=== PATIENT | female | born 1975 | race African-American/Black ===

== ENCOUNTER 2022-03-29 07:06 | Emergency (ER) | payer OTHER, SELFPAY ==
[2022-03-29 07:18] VITALS: BP 128/74; PULSE 61; RESP 18; TEMP 36.7; O2SAT 99; BMI 40.9
--- OUTSIDE RECORDS SUMMARY | 2022-03-29 08:04 | XMS_ITS | Continuity of Care Document ---
:1975 Author Organization [facility] Address [address] [place] [address]- Care Team Providers Name Role Phone Martin DOSS, Topher Moore Primary Care Phys[id number] Date(s): 02/09/21 - 03/11/21 [facility] [address] [place] [address]- Allergies, Adverse Reactions, Alerts No Known Medication Allergies Medications Basaglar KwikPen 100 units/mL subcutaneous solution = 10 units, Subcutaneous Injection, Daily at bedtime, # 10 mL, 0 Refills, Maintenance, 02/23/21 8:14:00 EST, Solution, Partial fill upon patient request if the prescription is for a schedule II opioid drug. Start Date: 02/23/21 Status: OrderedCetirizine 0 Refills, Maintenance, 03/10/20 12:34:00 EST, Partial fill upon patient request if the prescriptionis for a schedule II opioid drug. Start Date: 03/10/20 Status: Orderedchlorthalidone 25 mg oral tablet 25 mg, 1, tablet, By Mouth, Daily, # 30 tablet, Refills 2, Tot. Refills 2, Maintenance, 06/14/20 15:45:00 EST, Route to Pharmacy Electronically, [facility]/pharmacy #[id number], Partial fill upon patient request ifthe prescription is for a schedule II opioid drug... Start Date: 06/14/20 Status: OrderedCompression Stockings See Instructions, # 2 each, Refills 2, Tot. Refills 2, Maintenance, surgical, knee length 20-30 mm Hg DX: I83.899, 09/28/20 9:45:00 EDT, Supply Start Date: 09/28/20 Status: Orderedferrous sulfate 325 mg oral enteric coated tablet 325 mg, 1, tablet, By Mouth, Daily, # 30 tablet, Refills 0, Maintenance, 03/10/20 12:33:00 EST, Partial fill upon patient request if the prescription is for a schedule II opioid drug. Start Date: 03/10/20 Status: OrderedLyrica 150 mg oral capsule 1 capsule = 150 mg, By Mouth, 2 times a day, # 60 capsule, 0 Refills, Maintenance, 02/23/21 8:13:00 EST, Capsule, Partial fill upon patient request if the prescription is for a schedule II opioid drug. Start Date: 02/23/21 Status: OrderedNaprosyn 500 mg oral tablet 1 tablet = 500 mg, By Mouth, 2 times a day, PRN pain, with food, # 30 tablet, 0 Refills, Maintenance, 06/13/14 16:25:27, Tablet, 1 tablet By Mouth 2 times a day,x15 days,PRN:pain,Instr:with food Start Date: 06/13/14 Stop Date: 06/28/14 Status: Orderednaproxen 500 mg oral tablet 1 tablet = 500 mg, By Mouth, 2 times a day, PRN Pain , Moderate, with food, # 20 tablet, 0 Refills, Maintenance, 06/14/18 11:50:42 EST, Tablet Start Date: 06/14/18 Stop Date: 06/24/18 Status: OrderedTessalon Perles 100 mg oral capsule 1 capsule = 100 mg, By Mouth, 3 times a day, for 7 days, do not crush or chew for cough, # 21 capsule, 0 Refills, Acute 03/12/21 17:54:00 EST, 03/05/21 17:54:00 EST, Capsule, [facility]/pharmacy #[id number], Partial fill upon patient request if the prescription i... Start Date: 03/05/21 Stop Date: 03/12/21 Status: OrderedtiZANidine 2 mg oral capsule 2 capsule = 4 mg, By Mouth, Every 8 hours, 0 Refills, Maintenance, 09/22/20 15:29:00 EDT, Partial fill upon patient request if the prescription is for a schedule II opioid drug. Start Date: 09/22/20 Status: Ordered Problem List Condition Effective Dates Status Health Status Informant Acute vaginitis(Confirmed) Active Severe obesity(Confirmed) Active Social History Social History Type Response Smoking Status Current every day smoker entered on: 07/04/14 Sex
--- OUTSIDE RECORDS SUMMARY | 2022-03-29 08:05 | XMS_ITS | Continuity of Care Document ---
:1975 Author Organization [facility] Address [address] [place] [address]- Care Team Providers Name Role Phone Martin DOSS, Topher Moore Primary Care Physician Encounter [facility] Date(s): 08/27/21 - 09/03/21 [facility] [address] [place], [place] [address] Attending Physician: Reji Levi MD Admitting Physician: Reji Levi MD Referring Physician: Topher Salazar NP Allergies, Adverse Reactions, Alerts No Known Medication Allergies Medications Ativan 0.5 mg oral tablet See Instructions, TAKE 1 TABLET AT BEDTIME AND 1 TABLET 1 HOUR PRIOR TO PROCEDURE, # 2 tablet, 0 Refills, Maintenance, 08/04/21 11:21:00 EDT, Partial fill upon patient request if the prescription is for a schedule II opioid drug. Start Date: 08/04/21 Status: OrderedBasaglar KwikPen 100 units/mL subcutaneous solution = 10 [...] 06/14/20 15:45:00 EST, Route to Pharmacy Electronically, [facility]/pharmacy #[id number], Partial fill upon patient request ifthe prescription [...] II opioid drug. Start Date: 03/10/20 Status: Orderedgabapentin 300 mg oral capsule TAKE 1 CAPSULE BY MOUTH 3 TIMES DAILY FOR PAIN Start Date: 08/27/21 Status: Orderedketotifen 0.025% ophthalmic solution 1 drops, Eyes, Both, Every 12 hours, for 30 days, # 7.5 mL, 0 Refills, Acute 09/05/21 11:25:00 EDT, 08/06/21 11:25:00 EDT, Solution, [facility]/pharmacy #[id number], Partial fill upon patient request if the prescription is for a schedule II opioid drug., 1 drops E... Start Date: 08/06/21 Stop Date: 09/05/21 Status: Orderedlidocaine-prilocaine 2.5%-2.5% topical cream See Instructions, APPLY TO AFFECTED LEG FROM THIGH TO ANKLE 1 HOUR PRIOR TO PROCEDURE AND COVER WITHPLASTIC WRAP, # 30 Gm, 0 Refills, Maintenance, 08/04/21 11:21:00 EDT, Partial fill upon patient request if the prescription is for a schedule II opioi... Start Date: 08/04/21 Status: OrderedLyrica 150 mg oral capsule 1 [...] Start Date: 06/14/18 Stop Date: 06/24/18 Status: Orderedomeprazole 20 mg oral delayed release tablet 1 tablet = 20 mg, By Mouth, 2 times a day, # 28 tablet, 0 Refills, Maintenance, 04/21/21 17:05:00 EST, EC Tablet, [facility]/pharmacy #[id number], Partial fill upon patient request if the prescription is for a schedule II opioid drug., 163, cm, 04/21/21 16:03:00 E... Start Date: 04/21/21 Stop Date: 05/05/21 Status: OrderedtiZANidine 2 mg oral capsule 2 capsule = 4 mg, By Mouth, Every 8 hours, 0 Refills, Maintenance, 09/22/20 15:29:00 EDT, Partial fill upon patient request if the prescription is for a schedule II opioid drug. Start Date: 09/22/20 Status: Ordered Problem List Condition Effective Dates Status Health Status Informant Acute vaginitis(Confirmed) Active Severe obesity(Confirmed) Active Vital Signs Most recent to oldest [Reference Range]: 1 Height 163 cm (08/27/21 12:59 PM) Weight 114.5 kg (08/27/21 12:59 PM) Pulse Rate [55-90 bpm] 64 bpm (08/27/21 12:59 PM) Body Mass Index [18.5-24.99] 43.1 *>HHI* (08/27/21 12:59 PM) Blood Pressure [90-138/55-84 mm Hg] 150/72 mm Hg *H* (08/27/21 12:59 PM) Blood pressure sites Arm, right (08/27/21 12:59 PM) Weight Obtained Via Patient/family stated (08/27/21 12:59 PM) Social History Social History Type Response Smoking Status Current every day smoker entered on: 07/04/14 Sex
--- OUTSIDE RECORDS SUMMARY | 2022-03-29 08:05 | XMS_ITS | Continuity of Care Document ---
:1975 Author Organization [facility] Address [address] [place] [address]- Care Team Providers Name Role Phone Martin DOSS, Topher Moore Primary Care Physician [phone] [id number] Date(s): 01/17/22 - 02/16/22 [facility] [address] [place], [place] [address] Allergies, Adverse Reactions, Alerts No Known Medication Allergies Medications atorvastatin 40 mg oral tablet 0 Refills, Maintenance, 01/21/22 10:26:00 EDT, Partial fill upon patient request if the prescriptionis for a schedule II opioid drug. Start Date: 01/21/22 Status: OrderedCetirizine 0 Refills, Maintenance, 03/10/20 12:34:00 EST, Partial fill upon patient request if the prescriptionis for a schedule II opioid drug. Start Date: 03/10/20 Status: OrderedCompression Stockings See Instructions, # 2 each, Refills 2, Tot. Refills 2, Maintenance, surgical, knee length 20-30 mm Hg DX: I83.899, 09/23/21 10:15:00 EDT, Supply Start Date: 09/23/21 Status: Orderedferrous sulfate 325 mg oral enteric coated tablet 325 mg, 1, tablet, By Mouth, Daily, # 30 tablet, Refills 0, Maintenance, 03/10/20 12:33:00 EST, Partial fill upon patient request if the prescription is for a schedule II opioid drug. Start Date: 03/10/20 Status: Orderedfurosemide 40 mg oral tablet Refills 0, Maintenance, 01/21/22 10:26:00 EDT, Partial fill upon patient request if the prescriptionis for a schedule II opioid drug. Start Date: 01/21/22 Status: Orderedgabapentin 300 mg oral capsule TAKE 1 CAPSULE BY MOUTH 3 TIMES DAILY FOR PAIN Start Date: 08/27/21 Status: Orderedpotassium chloride 10 mEq oral capsule, extended release 0 Refills, Maintenance, 01/21/22 10:33:00 EDT, Partial fill upon patient request if the prescriptionis for a schedule II opioid drug. Start Date: 01/21/22 Status: OrderedtiZANidine 2 mg oral capsule 2 capsule = 4 mg, By Mouth, Every 8 hours, 0 Refills, Maintenance, 09/22/20 15:29:00 EDT, Partial fill upon patient request if the prescription is for a schedule II opioid drug. Start Date: 09/22/20 Status: Ordered Problem List Condition Confirmation Course Effective Dates Status Health Stat us Informant Acute vaginitis Confirmed Active Severe obesity Confirmed Active Social History Social History Type Response Smoking Status Current every day smoker entered on: 07/04/14 Sex Patient Care team information Care Team PersonnelName: Martin DOSS, Topher Moore Position: Reference Physician Member Role: PCP Address: Address: [address] [place] [address] [place] Care Team Related PersonsName: MARCE BAZAN Address: home [address] [place] [address] Name: HERRERA PYLE Address: home [facility] [address] [place] [address]
--- OUTSIDE RECORDS SUMMARY | 2022-03-29 08:05 | XMS_ITS | Continuity of Care Document ---
:1975 Author Organization [facility] Address [address] [place] [address]- Care Team Providers Name Role Phone Martin DOSS, Topher Moore Primary Care Physician [phone] [id number] Date(s): 04/28/21 - 05/28/21 [facility] [address] [place] [address]- Allergies, Adverse Reactions, Alerts No Known Medication [...] 06/14/20 15:45:00 EST, Route to Pharmacy Electronically, [facility]/pharmacy #[id number], Partial fill upon patient request ifthe [...] Refills, Maintenance, 04/21/21 17:05:00 EST, EC Tablet, [facility]/pharmacy #[id number], Partial fill upon patient request if [...]
--- OUTSIDE RECORDS SUMMARY | 2022-03-29 08:05 | XMS_ITS | Continuity of Care Document ---
:1975 Author Organization [facility] Address [address] [place] [address]- Care Team Providers Name Role Phone Martin DOSS, Topher Moore Primary Care Physician [phone] Encounter [facility] Date(s): 11/24/20 - 12/24/20 [facility] [address] [place], [place] [address] Attending Physician: Romina Oconnor Admitting Physician: Romina Oconnor Referring Physician: AdmtrRomina Allergies, Adverse Reactions, Alerts No Known Medication Allergies Medications Cetirizine 0 Refills, Maintenance, 03/10/20 12:34:00 EST, Partial fill upon patient request if the prescriptionis for a schedule II opioid drug. Start Date: 03/10/20 Status: Orderedchlorthalidone 25 mg oral tablet 25 mg, 1, tablet, By Mouth, Daily, # 30 tablet, Refills 2, Tot. Refills 2, Maintenance, 06/14/20 15:45:00 EST, Route to Pharmacy Electronically, [facility]/pharmacy #[id number], Partial fill upon patient request [...] 03/10/20 Status: Orderedgabapentin 300 mg oral capsule 300 mg, 1, capsule, By Mouth, 3 times a day, # 90 capsule, Refills 0, Maintenance, 09/22/20 15:24:00EDT, Partial fill upon patient request if the prescription is for a schedule II opioid drug. Start Date: 09/22/20 Status: OrderedNaprosyn 500 mg oral tablet 1 [...] Start Date: 06/14/18 Stop Date: 06/24/18 Status: OrderedtiZANidine 2 mg oral capsule 2 capsule = 4 mg, By Mouth, Every 8 hours, 0 Refills, Maintenance, 09/22/20 15:29:00 EDT, Partial fill upon patient request if the prescription is for a schedule II opioid drug. Start Date: 09/22/20 Status: Ordered Problem List Condition Effective Dates Status Health Status Informant Acute vaginitis(Confirmed) Active Social History Social History Type Response Smoking Status Current every day smoker entered on: 07/04/14 Sex
--- OUTSIDE RECORDS SUMMARY | 2022-03-29 08:05 | XMS_ITS | Continuity of Care Document ---
:1975 Author Organization [facility] Address [address] [place] [address]- Care Team Providers Name Role Phone Martin DOSS, Topher Moore Primary Care Phys[id number] Date(s[facility] - 02/12/22 [facility] [address] [place], [place] [address] Attending Physician: Reji Levi MD Admitting [...] 40 mg oral tablet Refills 0, Maintenance, 10/14/22 10:26:00 EDT, Partial fill upon patient request [...] on: 07/04/14 Sex Patient Care team information PersonnelName: Topher Salazar NP Address: Address: [address] [place] [address] [address]
--- OUTSIDE RECORDS SUMMARY | 2022-03-29 08:05 | XMS_ITS | Continuity of Care Document ---
:1975 Author Organization [facility] Address [address] [place] [address]- Care Team Providers Name Role Phone Martin DOSS, Topher Moore Primary Care Physician Encounter [facility] Date(s): 08/06/21 - 08/13/21 [facility] [address] [place], [place] [address] Attending Physician: Kishan Petty DO Referring Physician: Topher Salazar NP Allergies, Adverse [...] 06/14/20 15:45:00 EST, Route to Pharmacy Electronically, [facility]/pharmacy #[id number], Partial fill upon patient request [...] II opioid drug. Start Date: 03/10/20 Status: Orderedketotifen 0.025% ophthalmic solution 1 drops, Eyes, Both, Every 12 hours, for 30 days, # 7.5 mL, 0 Refills, Acute 09/05/21 11:25:00 EDT, 08/06/21 11:25:00 EDT, Solution, [facility]/pharmacy #[id number], Partial fill upon patient request [...] Refills, Maintenance, 04/21/21 17:05:00 EST, EC Tablet, [facility]/pharmacy #[id number], Partial fill upon patient request [...] oldest [Reference Range]: 1 Height 163 cm (08/06/21 10:37 AM) Oxygen Saturation [94-100 %] 100 % (08/06/21 10:37 AM) Pulse Rate [55-90 bpm] 63 bpm (08/06/21 10:37 AM) Blood Pressure [90-138/55-84 mm Hg] 110/63 mm Hg (08/06/21 10:37 AM) Temperature [96.8-100.4 DegF] 97.3 DegF (08/06/21 10:37 AM) Mode of Delivery (Oxygen) Room air (08/06/21 10:37 AM) Blood pressure sites Arm, left (08/06/21 10:37 AM) Temperature Route Temporal (08/06/21 10:37 AM) Social History Social History Type Response Smoking Status Current every day smoker entered on: 07/04/14 Sex
--- OUTSIDE RECORDS SUMMARY | 2022-03-29 08:05 | XMS_ITS | Continuity of Care Document ---
:1975 Author Organization [facility] Address [address] [place] [address]- Care Team Providers Name Role Phone Martin DOSS, Topher Moore Primary Care Phys[id number] Date(s): 02/26/21 - 03/28/21 [facility] [address] [place] [address]- Allergies, Adverse Reactions, Alerts No Known Medication [...] 06/14/20 15:45:00 EST, Route to Pharmacy Electronically, [facility]/pharmacy #[id number], Partial fill upon patient request [...]
--- OUTSIDE RECORDS SUMMARY | 2022-03-29 08:05 | XMS_ITS | Continuity of Care Document ---
:1975 Author Organization [facility] Address [address] [place] [address]- Care Team Providers Name Role Phone Martin DOSS, Topher Moore Primary Care Physician [id number] Date(s): 08/13/21 - 08/20/21 [facility] [address] [place], [place] [address] Attending Physician: Joao Bush MD Admitting Physician: Joao Bush MD Referring Physician: Topher Salazar NP Allergies, [...] 15:45:00 EST, Route to Pharmacy Electronically, [facility]/pharmacy #[id number], Partial fill upon patient request [...] 11:25:00 EDT, 08/06/21 11:25:00 EDT, Solution, [facility]/pharmacy #[id number], Partial fill upon patient request [...] Maintenance, 04/21/21 17:05:00 EST, EC Tablet, [facility]/pharmacy #[id number], Partial fill upon patient request [...]
--- OUTSIDE RECORDS SUMMARY | 2022-03-29 08:05 | XMS_ITS | Continuity of Care Document ---
:1975 Author Organization [facility] Address [address] [place] [address]- Care Team Providers Name Role Phone Ann Noel Primary Care Physician Encounter [facility] Date(s): 11/12/19 - 12/12/19 [facility] [address] [place] [address]- [facility] Attending Physician: Romina Oconnor Admitting Physician: Romina Oconnor Referring Physician: AdmtrRomina Allergies, Adverse Reactions, Alerts No Known Medication Allergies Medications Diflucan 150 mg oral tablet See Instructions, 1 tablet By Mouth Once for signs of yeast infection, then repeat in 5 days if symptoms continue, # 2 tablet, 0 Refills, Soft Stop, 07/17/19 13:41:00 EDT, Tablet, [facility] #[id number], 163, cm, 07/15/19 10:14:00 EDT, Height, 10... Start Date: 07/17/19 Status: OrderedHydrochlorothiazide By Mouth, Daily, 0 Refills, Maintenance, 07/05/14 13:56:54 Start Date: 07/05/14 Status: OrderedNaprosyn 500 mg oral tablet 1 [...] Start Date: 06/14/18 Stop Date: 06/24/18 Status: OrderedOmeprazole By Mouth, Daily, 0 Refills, Maintenance, 07/05/14 13:56:10 Start Date: 07/05/14 Status: Ordered Social History Social History Type Response Smoking Status Current every day smoker entered on: 07/04/14 Sex
--- OUTSIDE RECORDS SUMMARY | 2022-03-29 08:05 | XMS_ITS | Continuity of Care Document ---
:1975 Author Organization [facility] Address [address] [place] [address]- Care Team Providers Name Role Phone Martin DOSS, Topher Moore Primary Care Physician [phone] Encounter [facility] Date(s): 08/06/21 - 09/05/21 [facility] [address] [place], [place] [address] Attending Physician: Romina Oconnor Admitting Physician: Romina Oconnor Referring Physician: trRomina Allergies, Adverse Reactions, Alerts No Known Medication [...] 06/14/20 15:45:00 EST, Route to Pharmacy Electronically, [facility]/pharmacy #[id number], Partial fill upon patient request ifthe prescription [...] DAILY FOR PAIN Start Date: 08/27/21 Status: Orderedlidocaine-prilocaine 2.5%-2.5% topical cream See Instructions, [...] Refills, Maintenance, 04/21/21 17:05:00 EST, EC Tablet, [facility]/pharmacy #[id number], Partial fill upon patient request if [...]
--- OUTSIDE RECORDS SUMMARY | 2022-03-29 08:05 | XMS_ITS | Continuity of Care Document ---
:1975 Author Organization [facility] Address [address] [place] [address]- Care Team Providers Name Role Phone Martin DOSS, Topher oMore Primary Care Physician [id number] Date(s): 02/23/21 - 03/02/21 [facility] [address] [place] [address]- Attending Physician: Javan Hernandez MD Admitting Physician: Javan Hernandez MD Referring Physician: Topher Salazar NP Allergies, [...] 06/14/20 15:45:00 EST, Route to Pharmacy Electronically, [facility]/pharmacy #[id number], Partial fill upon patient request [...]
--- OUTSIDE RECORDS SUMMARY | 2022-03-29 08:05 | XMS_ITS | Continuity of Care Document ---
:1975 Author Organization [facility] Address [address] [place] [address]- Care Team Providers Name Role Phone Ann Noel Primary Care Physician Encounter [facility] Date(s): 04/18/20 - 05/18/20 [facility] [address] [place] [address]- Attending Physician: Romina Oconnor Admitting Physician: Romina Oconnor Referring Physician: Romina Oconnor Allergies, Adverse Reactions, Alerts No Known Medication Allergies Medications Cetirizine 0 Refills, Maintenance, 03/10/20 12:34:00 EST, Partial fill upon patient request if the prescriptionis for a schedule II opioid drug. Start Date: 03/10/20 Status: Orderedferrous sulfate 325 mg oral enteric coated tablet 325 mg, 1, tablet, By Mouth, Daily, # 30 tablet, Refills 0, Maintenance, 03/10/20 12:33:00 EST, Partial fill upon patient request if the prescription is for a schedule II opioid drug. Start Date: 03/10/20 Status: OrderedHydrochlorothiazide By Mouth, Daily, 0 Refills, [...] 07/05/14 13:56:10 Start Date: 07/05/14 Status: Ordered Problem List Condition Effective Dates Status Health Status Informant Acute vaginitis(Confirmed) Active Social History Social History Type Response Smoking Status Current every day smoker entered on: 07/04/14 Sex
--- OUTSIDE RECORDS SUMMARY | 2022-03-29 08:05 | XMS_ITS | Continuity of Care Document ---
:1975 Author Organization [facility] Address [address] [place] [address]- Care Team Providers Name Role Phone Ann Noel Primary Care Physician Encounter [facility] Date(s): 07/15/19 - 07/22/19 [facility] [address] [place] [address]- [facility] Encounter Diagnosis Vaginal discharge (Discharge Diagnosis) - 07/15/19 Attending Physician: Stella SONI, Armani Benton Referring Physician: Ann Noel Medications Diflucan 150 mg oral tablet See Instructions, 1 tablet By Mouth Once for signs of yeast infection, then repeat in 5 days if symptoms continue, # 2 tablet, 0 Refills, Soft Stop, 07/17/19 13:41:00 EDT, [id number], 163, cm, 07/15/19 10:14:00 EDT, Height, 10... Start Date: 07/17/19 Status: OrderedHydrochlorothiazide By Mouth, Daily, 0 Refills, Maintenance, 07/05/14 13:56:54 Start Date: 07/05/14 Status: OrderedmetroNIDAZOLE 500 mg oral tablet 1 tablet = 500 mg, By Mouth, Every 12 hours, for 7 days, do not drink alcohol may take with food to minimize abdominal discomfort, # 14 tablet, 0 Refills, Acute 07/24/19 13:41:00 EDT, 07/17/19 13:41:00EDT, Tablet, [id number] #[id number], 163, c... Start Date: 07/17/19 Stop Date: 07/24/19 Status: OrderedNaprosyn 500 mg oral tablet 1 [...] Start Date: 07/05/14 Status: Ordered Problem List Diagnosis Diagnosis Type Effective Dates Health Status Clinical In formant Service Vaginal Discharge 07/15/19 discharge Diagnosis Vital Signs Most recent to oldest [Reference Range]: 1 Height 163 cm (07/15/19 10:14 AM) Weight 108.6 kg (07/15/19 10:14 AM) Oxygen Saturation [94-100 %] 100 % (07/15/19 10:14 AM) Pulse Rate [55-90 bpm] 61 bpm (07/15/19 10:14 AM) Body Mass Index [18.5-24.99] 40.87 *>HHI* (07/15/19 10:14 AM) Blood Pressure [90-138/55-84 mm Hg] 101/87 mm Hg (07/15/19 10:14 AM) Respiratory Rate [16-30 br/min] 18 br/min (07/15/19 10:14 AM) Temperature [96.8-100.4 DegF] 97.7 DegF (07/15/19 10:14 AM) Mode of Delivery (Oxygen) Room air (07/15/19 10:14 AM) Blood pressure sites Arm, right (07/15/19 10:14 AM) Temperature Route Oral (07/15/19 10:14 AM) Dry Weight 108.6 kg (07/15/19 10:14 AM) Weight Obtained Via Standing scale (07/15/19 10:14 AM) Dry Weight Obtained Via Standing scale (07/15/19 10:14 AM) Social History Social History Type Response Smoking Status Current every day smoker entered on: 07/04/14 Sex
--- OUTSIDE RECORDS SUMMARY | 2022-03-29 08:05 | XMS_ITS | Continuity of Care Document ---
:1975 Author Organization [facility] Address [address] [place] [address]- Care Team Providers Name Role Phone Ann Noel Primary Care Phys[id number] - 11/19/19 [facility] [address] [place] [address]- [facility] Attending Physician: Stella SONI, Armani Benton Referring Physician: Ann Noel Allergies, Adverse Reactions, Alerts No Known Medication Allergies Medications Diflucan 150 mg oral tablet See Instructions, 1 tablet By Mouth Once for signs of yeast infection, then repeat in 5 days if symptoms continue, # 2 tablet, 0 Refills, Soft Stop, 07/17/19 13:41:00 EDT, Tablet, [facility] #[id number], 163, cm, 07/15/19 10:14:00 EDT, Height, 10... Start Date: 07/17/19 Status: OrderedFlagyl 500 mg oral tablet 1 tablet = 500 mg, By Mouth, Every 12 hours, for 7 days, # 14 tablet, 0 Refills, Acute 11/26/19 14:01:00 EDT, 11/19/19 14:01:00 EDT, Tablet, [facility] #[id number], 163, cm, 11/12/19 15:55:00 EDT,Height, 108.6, kg, 07/15/19 10:14:00 EDT, Dry Weight Start Date: 11/19/19 Stop Date: 11/26/19 Status: OrderedHydrochlorothiazide By Mouth, Daily, 0 Refills, [...] 07/05/14 13:56:10 Start Date: 07/05/14 Status: Ordered Vital Signs Most recent to oldest [Reference Range]: 1 Height 163 cm (11/12/19 3:55 PM) Oxygen Saturation [94-100 %] 100 % (11/12/19 3:55 PM) Pulse Rate [55-90 bpm] 69 bpm (11/12/19 3:55 PM) Blood Pressure [90-138/55-84 mm Hg] 117/77 mm Hg (11/12/19 3:55 PM) Respiratory Rate [16-30 br/min] 23 br/min (11/12/19 3:55 PM) Temperature [96.8-100.4 DegF] 99.4 DegF (11/12/19 3:55 PM) Mode of Delivery (Oxygen) Room air (11/12/19 3:55 PM) Blood pressure sites Arm, left (11/12/19 3:55 PM) Temperature Route Temporal (11/12/19 3:55 PM) Social History Social History Type Response Smoking Status Current every day smoker entered on: 07/04/14 Sex
--- OUTSIDE RECORDS SUMMARY | 2022-03-29 08:05 | XMS_ITS | Continuity of Care Document ---
:1975 Author Organization [facility] Address [address] [place] [address]- Care Team Providers Name Role Phone Martin DOSS, Topher Moore Primary Care Physician [phone] [id number] Date(s): 03/05/21 - 04/04/21 [facility] [address] [place] [address]- Attending Physician: Romina Oconnor Admitting Physician: Romina [...] 06/14/20 15:45:00 EST, Route to Pharmacy Electronically, [facility]/pharmacy #[id number], Partial fill upon patient request ifthe prescription [...]
--- OUTSIDE RECORDS SUMMARY | 2022-03-29 08:05 | XMS_ITS | Continuity of Care Document ---
:1975 Author Organization [facility] Address [address] [place] [address]- Care Team Providers Name Role Phone Martin DOSS, Topher Moore Primary Care Physician [phone] [facility] Date(s): 04/21/21 - 05/21/21 [facility] [address], [place] [address] Attending Physician: Romina Oconnor Admitting Physician: Romina [...] EST, Route to Pharmacy Electronically, [facility]/pharmacy #[id number], Partial fill upon patient request ifthe [...] 04/21/21 17:05:00 EST, EC Tablet, [facility]/pharmacy #[id number], Partial fill upon patient request if [...]
--- OUTSIDE RECORDS SUMMARY | 2022-03-29 08:05 | XMS_ITS | Continuity of Care Document ---
:1975 Author Organization [facility] Address [address] [place] [address]- Care Team Providers Name Role Phone Martin DOSS, Topher Moore Primary Care Physician [place] [facility] [place] 10/29/20 - 11/28/20 [facility] [address] [place] [place], [place] [address] Attending Physician: Romina Oconnor Admitting Physician: [...] 06/14/20 15:45:00 EST, Route to Pharmacy Electronically, [facility]/pharmacy #[id number], Partial fill upon patient request ifthe [...]
--- OUTSIDE RECORDS SUMMARY | 2022-03-29 08:05 | XMS_ITS | Continuity of Care Document ---
:1975 Author Organization [facility] Address [address] [place] [address]- Care Team Providers Name Role Phone Ann Noel Primary Care Physician [id number] Date(s): 04/18/20 - 04/25/20 [facility] [address] [place] [address]- Encounter Diagnosis Acute vaginitis (Discharge Diagnosis) - 04/18/20 Attending Physician: Esther Lau MD Referring Physician: Ann Noel Allergies, Adverse Reactions, Alerts No Known Medication Allergies Medications Cetirizine 0 Refills, Maintenance, 03/10/20 12:34:00 EST, Partial fill upon patient request if the prescriptionis for a schedule II opioid drug. Start Date: 03/10/20 Status: OrderedDiflucan 150 mg oral tablet 1 tablet = 150 mg, By Mouth, Once, # 2 tablet, 0 Refills, Soft Stop, 01/14/20 15:24:00 EDT, Tablet, [facility] #[id number], 163, cm, 01/12/20 8:58:00 EDT, Height, 114.9, kg, 01/12/20 9:02:00 EDT, Dry Weight Start Date: 01/14/20 Status: OrderedDiflucan 150 mg oral tablet 1 tablet = 150 mg, By Mouth, Once, # 2 tablet, 0 Refills, Soft Stop, 04/18/20 15:15:00 EST, Tablet, [facility]/pharmacy #[id number], Partial fill upon patient request if the prescription is for a schedule II opioiddrug., 163, cm, 04/18/20 14:46:00 EST, Height, 11... Start Date: 04/18/20 Status: OrderedDiflucan 150 mg oral tablet See Instructions, 1 tablet By Mouth Once for signs of yeast infection, then repeat in 5 days if symptoms continue, # 2 tablet, 0 Refills, Soft Stop, 07/17/19 13:41:00 EDT, Tablet, [facility][id number], 163, cm, 07/15/19 10:14:00 EDT, Height, 10... Start Date: 07/17/19 Status: Orderedferrous sulfate 325 mg oral enteric [...] Status Health Status Informant Acute vaginitis(Confirmed) Active Diagnosis Diagnosis Type Effective Dates Health Status Clinical In formant Service Acute vaginitis Discharge 04/18/20 Diagnosis Vital Signs Most recent to oldest [Reference Range]: 1 Height 163 cm (04/18/20 2:46 PM) Weight 110.6 kg (04/18/20 2:46 PM) Oxygen Saturation [94-100 %] 98 % (04/18/20 2:46 PM) Pulse Rate [55-90 bpm] 106 bpm *H* (04/18/20 2:46 PM) Body Mass Index [18.5-24.99] 41.63 *>HHI* (04/18/20 2:46 PM) Blood Pressure [90-138/55-84 mm Hg] 152/80 mm Hg *H* (04/18/20 2:46 PM) Respiratory Rate [16-30 br/min] 16 br/min (04/18/20 2:46 PM) Temperature [96.8-100.4 DegF] 98.0 DegF (04/18/20 2:46 PM) Mode of Delivery (Oxygen) Room air (04/18/20 2:46 PM) Blood pressure sites Arm, left (04/18/20 2:46 PM) Temperature Route Temporal (04/18/20 2:46 PM) Weight Obtained Via Standing scale (04/18/20 2:46 PM) Social History Social History Type Response Smoking Status Current every day smoker entered on: 07/04/14 Sex
--- OUTSIDE RECORDS SUMMARY | 2022-03-29 08:05 | XMS_ITS | Continuity of Care Document ---
:1975 Author Organization [facility] Address [address] [place] [address]- Care Team Providers Name Role Phone Ann Noel Primary Care Physician Encounter [facility] NBR [id number] Date(s): 05/14/20 - 05/14/[address] [address]- Encounter Diagnosis Chronic leg pain (Final) - 05/14/20 Discharge Disposition: A-D/C Home Attending Physician: Andrés Trammell MD Admitting Physician: Andrés Trammell MD Referring Physician: Not on Staff, Referring MD Allergies, Adverse Reactions, Alerts No Known Medication [...] Status Health Status Informant Acute vaginitis(Confirmed) Active Vital Signs Most recent to oldest [Reference Range]: 1 2 Height 163 cm (05/14/20 11:31 AM) Weight 109 kg (05/14/20 11:31 AM) Oxygen Saturation [94-100 %] 100 % 100 % (05/14/20 2:45 PM) (05/14/20 11:31 AM) Pulse Rate [55-90 bpm] 67 bpm 71 bpm (05/14/20 2:45 PM) (05/14/20 11:31 AM) Blood Pressure [90-138/55-84 mm Hg] 135/96 mm Hg 124/ 75 mm Hg (05/14/20 2:45 PM) (05/14/20 11:31 AM) Respiratory Rate [16-30 br/min] 16 br/min 16 br/mi n (05/14/20 2:45 PM) (05/14/20 11:31 AM) Temperature [96.8-100.4 DegF] 98.1 DegF (05/14/20 11:31 AM) Mode of Delivery (Oxygen) Room air Room air (05/14/20 2:45 PM) (05/14/20 11:31 AM) Blood pressure sites Arm, left Arm, left (05/14/20 2:45 PM) (05/14/20 11:31 AM) Temperature Route Oral (05/14/20 11:31 AM) Dry Weight 109 kg (05/14/20 11:31 AM) Weight Obtained Via Patient/family stated (05/14/20 11:31 AM) Dry Weight Obtained Via Patient/family stated (05/14/20 11:31 AM) Social History Social History Type Response Smoking Status Current every day smoker entered on: 07/04/14 Sex
--- OUTSIDE RECORDS SUMMARY | 2022-03-29 08:05 | XMS_ITS | Continuity of Care Document ---
:1975 Author Organization [facility] Address [address] [place] [address]- Care Team Providers Name Role Phone Martin DOSS, Topher Moore Primary Care Physician [facility] [id number] Date(s): 12/22/21 - 12/29/21 [facility] [address] [place], [place] [address] Attending Physician: Kishan Petty DO Referring Physician: [...] 06/14/20 15:45:00 EST, Route to Pharmacy Electronically, [facility]/pharmacy #[id number], Partial fill upon patient [...] Refills, Maintenance, 04/21/21 17:05:00 EST, EC Tablet, [facility]/pharmacy #[id number], Partial fill upon patient request if [...] oldest [Reference Range]: 1 Height 163 cm (12/22/21 2:21 PM) Oxygen Saturation [94-100 %] 100 % (12/22/21 2:21 PM) Pulse Rate [55-90 bpm] 75 bpm (12/22/21 2:21 PM) Blood Pressure [90-138/55-84 mm Hg] 95/77 mm Hg (12/22/21 2:21 PM) Respiratory Rate [16-30 br/min] 20 br/min (12/22/21 2:21 PM) Temperature [96.8-100.4 DegF] 97.9 DegF (12/22/21 2:21 PM) Mode of Delivery (Oxygen) Room air (12/22/21 2:21 PM) Blood pressure sites Arm, right (12/22/21 2:21 PM) Temperature Route Temporal (12/22/21 2:21 PM) Social History Social History Type Response Smoking Status Current every day smoker entered on: 07/04/14 Sex Care Team PersonnelName: Topher Salazar NP Address: [address] [place] [address]
--- OUTSIDE RECORDS SUMMARY | 2022-03-29 08:05 | XMS_ITS | Continuity of Care Document ---
:1975 Author Organization [facility] Address [address] [place] [address]- Care Team Providers Name Role Phone Ann Noel Primary Care Physician Encounter [facility] Date(s): 07/28/20 - 08/27/20 [facility] [address] [place], [place] [address] Attending Physician: Romina Oconnor Admitting [...] 06/14/20 15:45:00 EST, Route to Pharmacy Electronically, [facility]/pharmacy #[id number], Partial fill upon patient request ifthe prescription is for a schedule II opioid drug... Start Date: 06/14/20 Status: OrderedDiflucan 150 mg oral tablet 1 tablet = 150 mg, By Mouth, Once, # 1 tablet, 0 Refills, Soft Stop, 07/29/20 14:28:00 EDT, Tablet, [id number], Partial fill upon patient request if the prescription is for a schedule II opioiddrug., 163, cm, 07/28/20 14:32:00 EDT, Height, 10... Start Date: 07/29/20 Status: Orderedferrous sulfate 325 mg oral enteric coated tablet 325 mg, 1, tablet, By Mouth, Daily, # 30 tablet, Refills 0, Maintenance, 03/10/20 12:33:00 EST, Partial fill upon patient request if the prescription is for a schedule II opioid drug. Start Date: 03/10/20 Status: OrderedNaprosyn 500 mg oral tablet 1 [...]
--- OUTSIDE RECORDS SUMMARY | 2022-03-29 08:05 | XMS_ITS | Continuity of Care Document ---
:1975 Author Organization [facility] Address [address] [place] [address]- Care Team Providers Name Role Phone Martin DOSS, Topher Moore Primary Care Physician [id number]s): [facility] - 12/29/21 [facility] [address] [place] [address] Attending Physician: Reji Levi MD Admitting Physician: Reji Levi MD Referring Physician: Reji Levi MD Allergies, Adverse Reactions, Alerts No Known [...] 06/14/20 15:45:00 EST, Route to Pharmacy Electronically, [facility]/pharmacy #[id number], Partial fill upon patient request ifthe [...] Refills, Maintenance, 04/21/21 17:05:00 EST, EC Tablet, [facility]/pharmacy #[id number], Partial fill upon patient request if [...] Care Team PersonnelName: Topher Salazar NP Address: [address] [place] [address]
--- OUTSIDE RECORDS SUMMARY | 2022-03-29 08:05 | XMS_ITS | Continuity of Care Document ---
:1975 Author Organization [facility] Address [address] [place] [address]- Care Team Providers Name Role Phone Martin DOSS, Topher Moore Primary [id number] Date(s): 04/23/21 - 06/05/[address] [address] Attending Physician: Esther Lua MD Admitting Physician: Esther Lau MD Referring Physician: Esther Lau MD Allergies, Adverse Reactions, Alerts No Known [...] 06/14/20 15:45:00 EST, Route to Pharmacy Electronically, [facility]/pharmacy #[id number], Partial fill upon patient request [...] Refills, Maintenance, 04/21/21 17:05:00 EST, EC Tablet, [facility]/pharmacy #[id number], Partial fill upon patient request [...]
--- OUTSIDE RECORDS SUMMARY | 2022-03-29 08:05 | XMS_ITS | Continuity of Care Document ---
:1975 Author Organization [facility] Address [address] [place] [address]- Care Team Providers Name Role Phone Martin DOSS, Topher Moore Primary Care Physician [id number] Date(s): 11/24/20 - 12/01/20 [facility] [address] [place] [address]- Attending Physician: Javan Hernandez MD Admitting Physician: Javan Hernandez MD Referring Physician: Ann Noel Allergies, Adverse [...] 06/14/20 15:45:00 EST, Route to Pharmacy Electronically, [facility]/pharmacy #[id number], Partial fill upon patient [...]
--- OUTSIDE RECORDS SUMMARY | 2022-03-29 08:05 | XMS_ITS | Continuity of Care Document ---
:1975 Author Organization [facility] Address [address] [place] [address]- Care Team Providers Name Role Phone Martin DOSS, Topher Moore Primary Care Physician [phone] [facility] [id number] Date(s): 03/05/21 - 03/12/21 [facility] [address] [place] [address]- Attending Physician: Esther Lau MD Referring Physician: Topher Salazar NP Allergies, [...] 06/14/20 15:45:00 EST, Route to Pharmacy Electronically, [facility]/pharmacy #[id number], Partial fill upon patient request ifthe [...]
--- OUTSIDE RECORDS SUMMARY | 2022-03-29 08:05 | XMS_ITS | Continuity of Care Document ---
:1975 Author Organization [facility] Address [address] [place] [address]- Care Team Providers Name Role Phone Martin DOSS, Topher Moore Primary Care Physician [phone] [id number] Date(s): 02/09/21 - 03/11/21 [facility] [address] [place] [address]- Allergies, Adverse Reactions, Alerts No Known Medication [...] 06/14/20 15:45:00 EST, Route to Pharmacy Electronically, [facility]/pharmacy #[id number], Partial fill upon patient [...] 03/12/21 17:54:00 EST, 03/05/21 17:54:00 EST, Capsule, [facility]/pharmacy #[id number], Partial fill upon patient [...]
--- OUTSIDE RECORDS SUMMARY | 2022-03-29 08:05 | XMS_ITS | Continuity of Care Document ---
:1975 Author Organization [facility] Address [address] [place] [address]- Care Team Providers Name Role Phone Ann Noel Primary Care Physician Encounter [facility] Date(s): 01/12/20 - 02/11/20 [facility] [address] [place] [address]- [facility] Attending Physician: Romina Oconnor Admitting Physician: Romina Oconnor Referring Physician: trRomina Allergies, Adverse Reactions, Alerts No Known Medication Allergies Medications Diflucan 150 mg oral tablet 1 tablet = 150 mg, By Mouth, Once, # 2 tablet, 0 Refills, Soft Stop, 01/14/20 15:24:00 EDT, Tablet, [facility] #[id number], 163, cm, 01/12/20 8:58:00 EDT, Height, 114.9, kg, 01/12/20 9:02:00 EDT, Dry Weight Start Date: 01/14/20 Status: OrderedDiflucan 150 mg oral tablet See Instructions, 1 tablet By Mouth Once for signs of yeast infection, then repeat in 5 days if symptoms continue, # 2 tablet, 0 Refills, Soft Stop, 07/17/19 13:41:00 EDT, Tablet, [facility] #[id number], 163, cm, 07/15/19 10:14:00 EDT, Height, 10... [...]
--- OUTSIDE RECORDS SUMMARY | 2022-03-29 08:05 | XMS_ITS | Continuity of Care Document ---
:1975 Author Organization [facility] Address [address] [place] [address]- Care Team Providers Name Role Phone Martin DOSS, Topher Moore Primary Care Physician [id number] Date(s): 06/11/21 - 09/24/21 [facility] [address] [place] [address] Attending Physician: Joao Bush [...] 06/14/20 15:45:00 EST, Route to Pharmacy Electronically, [facility]/pharmacy #[id number], Partial fill upon patient request ifthe prescription [...] Refills, Maintenance, 04/21/21 17:05:00 EST, EC Tablet, [facility]/pharmacy #[id number], Partial fill upon patient [...]
--- OUTSIDE RECORDS SUMMARY | 2022-03-29 08:05 | XMS_ITS | Continuity of Care Document ---
:1975 Author Organization [facility] Address [address] [place] [address]- Care Team Providers Name Role Phone Ann Noel Primary Care Physician [place] [facility] [place] 10/12/19 - 10/12/[address] [address]- [facility] Discharge Disposition: A-D/C Home Attending Physician: Willard SONI, Suzanne Olivares Admitting Physician: Suzanne Lamar MD Referring Physician: Not on Staff, Referring MD Allergies, Adverse Reactions, Alerts No Known Medication Allergies Medications Diflucan 150 mg oral tablet See Instructions, 1 tablet By Mouth Once for signs of yeast infection, then repeat in 5 days if symptoms continue, # 2 tablet, 0 Refills, Soft Stop, 07/17/19 13:41:00 EDT, Tablet, [facility] #[id number], 163, cm, 07/15/19 10:14:00 EDT, Height, 10... [...] recent to oldest [Reference Range]: 1 2 Oxygen Saturation [94-100 %] 98 % 97 % (10/12/19 11:55 AM) (10/12/19 6:27 AM) Pulse Rate [55-90 bpm] 71 bpm 103 bpm (10/12/19 11:55 AM) *H* (10/12/19 6:27 AM) Blood Pressure [90-138/55-84 mm Hg] 122/76 mm Hg 137/ 80 mm Hg (10/12/19 11:55 AM) (10/12/19 6:27 AM) Respiratory Rate [16-30 br/min] 17 br/min 20 br/mi n (10/12/19 11:55 AM) (10/12/19 6:27 AM) Temperature [96.8-100.4 DegF] 98.3 DegF 97.5 DegF (10/12/19 11:55 AM) (10/12/19 6:27 AM) Mode of Delivery (Oxygen) Room air Room air (10/12/19 11:55 AM) (10/12/19 6:27 AM) Blood pressure sites Arm, right Arm, left (10/12/19 11:55 AM) (10/12/19 6:27 AM) Temperature Route Oral Oral (10/12/19 11:55 AM) (10/12/19 6:27 AM) Social History Social History Type Response Smoking Status Current every day smoker entered on: 07/04/14 Sex
--- OUTSIDE RECORDS SUMMARY | 2022-03-29 08:05 | XMS_ITS | Continuity of Care Document ---
:1975 Author Organization [facility] Address [address] [place] [address]- Care Team Providers Name Role Phone Martin DOSS, Topher Moore Primary Care Physician [place] [facility] Date(s): 06/08/21 - 07/08/21 [facility] [address] [place] [address]- Allergies, Adverse Reactions, Alerts No Known Medication [...]
--- OUTSIDE RECORDS SUMMARY | 2022-03-29 08:05 | XMS_ITS | Continuity of Care Document ---
:1975 Author Organization [facility] Address [address] [place] [address]- Care Team Providers Name Role Phone Martin DOSS, Topher Moore Primary Care Physician [phone] En[place] [facility] Date(s): 10/06/20 - 11/05/20 [facility] [address] [place] [address]- Allergies, Adverse Reactions, Alerts No Known Medication Allergies Medications Cetirizine 0 Refills, Maintenance, 03/10/20 12:34:00 EST, Partial fill upon patient request if the prescriptionis for a schedule II opioid drug. Start Date: 03/10/20 Status: Orderedchlorthalidone 25 mg oral tablet 25 mg, 1, tablet, By Mouth, Daily, # 30 tablet, Refills 2, Tot. Refills 2, Maintenance, 06/14/20 15:45:00 EST, Route to Pharmacy Electronically, [facility]/pharmacy #[id number], Partial fill upon patient request ifthe prescription [...]
--- OUTSIDE RECORDS SUMMARY | 2022-03-29 08:05 | XMS_ITS | Continuity of Care Document ---
:1975 Author Organization [facility] Address [address] [place] [address]- Care Team Providers Name Role Phone Ann Noel Primary Care Physician [id number] Date(s): 09/22/20 - 09/29/20 [facility] [address] [place] [address]- Attending Physician: Javan Hernandez MD Admitting Physician: Javan Hernandez MD Referring Physician: Martin DOSS, Topher Moore Allergies, Adverse Reactions, Alerts No Known Medication Allergies Medications Cetirizine 0 Refills, Maintenance, 03/10/20 12:34:00 EST, Partial fill upon patient request if the prescriptionis for a schedule II opioid drug. Start Date: 03/10/20 Status: Orderedchlorthalidone 25 mg oral tablet 25 mg, 1, tablet, By Mouth, Daily, # 30 tablet, Refills 2, Tot. Refills 2, Maintenance, 06/14/20 15:45:00 EST, Route to Pharmacy Electronically, [facility]/pharmacy #[id number], Partial fill upon patient [...] oldest [Reference Range]: 1 Height 163 cm (09/22/20 3:13 PM) Weight 115.9 kg (09/22/20 3:13 PM) Oxygen Saturation [94-100 %] 97 % (09/22/20 3:13 PM) Pulse Rate [55-90 bpm] 67 bpm (09/22/20 3:13 PM) Body Mass Index [18.5-24.99] 43.62 *>HHI* (09/22/20 3:13 PM) Blood Pressure [90-138/55-84 mm Hg] 120/80 mm Hg (09/22/20 3:13 PM) Blood pressure sites Arm, right (09/22/20 3:13 PM) Weight Obtained Via Patient/family stated (09/22/20 3:13 PM) Social History Social History Type Response Smoking Status Current every day smoker entered on: 07/04/14 Sex
--- OUTSIDE RECORDS SUMMARY | 2022-03-29 08:06 | XMS_ITS | Continuity of Care Document ---
:1975 Author Organization [facility] Address [address] [place] [address]- Care Team Providers Name Role Phone Ann Noel Primary Care Physician [place] [facility] [place]/24/[place] - 07/01/19 [facility] [address] [place] [address]- [facility] Encounter Diagnosis Vaginal discharge (Discharge Diagnosis) - 06/24/19 Attending Physician: Stella SONI, Armani Benton Referring Physician: Ann Noel Medications Diflucan 150 mg oral tablet 1 tablet = 150 mg, By Mouth, Once, # 1 tablet, 0 Refills, Soft Stop, 07/01/19 15:39:00 EDT, Tablet, [id number], 163, cm, 06/24/19 11:24:00 EDT, Height, 109.3, kg, 06/24/19 11:24:00 EDT, Dry Weight Start Date: 07/01/19 Status: OrderedFlagyl 500 mg oral tablet 1 tablet = 500 mg, By Mouth, Every 12 hours, for 7 days, # 14 tablet, 0 Refills, Acute 07/03/19 14:08:00 EDT, 06/26/19 14:08:00 EDT, Tablet, [facility] #[id number], 163, cm, 06/24/19 11:24:00 EDT,Height, 109.3, kg, 06/24/19 11:24:00 EDT, Dry Weight Start Date: 06/26/19 Stop Date: 07/03/19 Status: OrderedHydrochlorothiazide By Mouth, Daily, 0 Refills, [...] Status Clinical In formant Service Vaginal Discharge 06/24/19 discharge Diagnosis Vital Signs Most recent to oldest [Reference Range]: 1 Height 163 cm (06/24/19 11:20 AM) Weight 109.3 kg (06/24/19 11:20 AM) Oxygen Saturation [94-100 %] 100 % (06/24/19: AM) Pulse Rate [55-90 bpm] 69 bpm (06/24/19:20 AM) Body Mass Index [18.5-24.99] 41.14 *>HHI* (06/24/19:20 AM) Blood Pressure [90-138/55-84 mm Hg] 131/77 mm Hg (06/24/19:20 AM) Respiratory Rate [16-30 br/min] 18 br/min (06/24/19 11:20 AM) Temperature [96.8-100.4 DegF] 98.2 DegF (06/24/19 11:20 AM) Mode of Delivery (Oxygen) Room air (06/24/19:20 AM) Blood pressure sites Arm, right (06/24/19:20 AM) Temperature Route Oral (06/24/19 11:20 AM) Dry Weight 109.3 kg (06/24/19 11:20 AM) Weight Obtained Via Standing scale (06/24/19 11:20 AM) Dry Weight Obtained Via Standing scale (06/24/19 11:20 AM) Social History Social History Type Response Smoking Status Current every day smoker entered on: 07/04/14 Sex
--- OUTSIDE RECORDS SUMMARY | 2022-03-29 08:06 | XMS_ITS | Continuity of Care Document ---
:1975 Author Organization [facility] Address [address] [place] [address]- Care Team Providers Name Role Phone Martin DOSS, Topher Moore Primary Care Physician [phone] [facility] Date(s): 07/19/21 - 09/26/21 [facility] [address] [place] [address] Attending Physician: Joao Bush MD Admitting Physician: Joao Bush MD Referring Physician: Joao Bush MD Allergies, Adverse Reactions, Alerts No Known [...] 15:45:00 EST, Route to Pharmacy Electronically, [facility]/pharmacy #[id number], Partial fill upon patient request [...] Maintenance, 04/21/21 17:05:00 EST, EC Tablet, [facility]/pharmacy #[id number], Partial fill upon patient request [...]
--- OUTSIDE RECORDS SUMMARY | 2022-03-29 08:06 | XMS_ITS | Continuity of Care Document ---
:1975 Author Organization [facility] Address [address] [place] [address]- Care Team Providers Name Role Phone Martin RESISTOR TESTING MACHINE OPERATOR, Topher Moore Primary Care Physician Encounter [facility] [place] Date(s): 12/22/21 - 01/21/22 [facility] [address] [place], [place] [address] Attending Physician: Romina Oconnor Admitting [...] information PersonnelName: Topher Salazar NP Address: Address: [address] [place] [id number]
--- OUTSIDE RECORDS SUMMARY | 2022-03-29 08:06 | XMS_ITS | Continuity of Care Document ---
:1975 Author Organization [facility] Address [address] [place] [address]- Care Team Providers Name Role Phone Martin DOSS, Topher Moore Primary Care Physician [place] [facility] [place]21 - 04/28/21 [facility] [address] [place], [place] [address] Attending Physician: Not on Staff, Attending MD Referring Physician: Topher Salazar NP Allergies, [...] oldest [Reference Range]: 1 Height 163 cm (04/21/21 4:03 PM) Oxygen Saturation [94-100 %] 100 % (04/21/21 4:03 PM) Pulse Rate [55-90 bpm] 62 bpm (04/21/21 4:03 PM) Blood Pressure [90-138/55-84 mm Hg] 146/90 mm Hg *H* (04/21/21 4:03 PM) Respiratory Rate [16-30 br/min] 20 br/min (04/21/21 4:03 PM) Temperature [96.8-100.4 DegF] 98.4 DegF (04/21/21 4:03 PM) Mode of Delivery (Oxygen) Room air (04/21/21 4:03 PM) Blood pressure sites Arm, left (04/21/21 4:03 PM) Temperature Route Temporal (04/21/21 4:03 PM) Social History Social History Type Response Smoking Status Current every day smoker entered on: 07/04/14 Sex
--- OUTSIDE RECORDS SUMMARY | 2022-03-29 08:06 | XMS_ITS | Continuity of Care Document ---
:1975 Author Organization [facility] Address [address] [place] [address]- Care Team Providers Name Role Phone Ann Noel Primary Care Physician Encounter [facility] [place] Date(s): 06/14/20 - 06/21/20 [facility] [address] [place], [place] [address] Attending Physician: Colette Mcmillan MD Referring Physician: Ann Noel Allergies, Adverse [...] II opioid drug... Start Date: 06/14/20 Status: Orderedferrous sulfate 325 mg oral enteric [...] oldest [Reference Range]: 1 Height 163 cm (06/14/20 3:11 PM) Weight 111 kg (06/14/20 3:11 PM) Oxygen Saturation [94-100 %] 100 % (06/14/20 3:11 PM) Pulse Rate [55-90 bpm] 108 bpm *H* (06/14/20 3:11 PM) Body Mass Index [18.5-24.99] 41.78 *>HHI* (06/14/20 3:11 PM) Blood Pressure [90-138/55-84 mm Hg] 122/84 mm Hg (06/14/20 3:11 PM) Respiratory Rate [16-30 br/min] 20 br/min (06/14/20 3:11 PM) Temperature [96.8-100.4 DegF] 97.8 DegF (06/14/20 3:11 PM) Mode of Delivery (Oxygen) Room air (06/14/20 3:11 PM) Blood pressure sites Arm, right (06/14/20 3:11 PM) Temperature Route Temporal (06/14/20 3:11 PM) Social History Social History Type Response Smoking Status Current every day smoker entered on: 07/04/14 Sex
--- OUTSIDE RECORDS SUMMARY | 2022-03-29 08:06 | XMS_ITS | Continuity of Care Document ---
:1975 Author Organization [facility] Address [address] [place] [address]- Care Team Providers Name Role Phone Martin DOSS, Topher Moore Primary Care Physician [phone] Encounter [facility] [id number] Date(s): 11/04/21 - 03/04/[address] [address]- Attending Physician: Jean Claude Lovelace MD Admitting Physician: Jean Claude Lovelace MD Referring Physician: Topher Salazar NP Allergies, [...] Reference Physician Member Role: PCP Address: Address: [address] [place] [address]- [place] Care Team Related PersonsName: MARCE BAZAN Address: home [address] [place] [address] Name: HERRERA PYLE Address: home [facility] [address] [place] [address]
--- OUTSIDE RECORDS SUMMARY | 2022-03-29 08:06 | XMS_ITS | Continuity of Care Document ---
:1975 Author Organization [facility] Address [address] [place] [address]- Care Team Providers Name Role Phone Martin DOSS, Topher Moore Primary Care Physician [phone] Encounter [facility] Date(s): 03/25/21 - 04/24/21 [facility] [address] [place] [address]- Allergies, Adverse Reactions, Alerts No Known Medication [...] 06/14/20 15:45:00 EST, Route to Pharmacy Electronically, [facility]/pharmacy #[id number], Partial fill upon [...] II opioid drug. Start Date: 02/23/21 Status: OrderedmetroNIDAZOLE 500 mg oral tablet 1 tablet = 500 mg, By Mouth, 2 times a day, for 7 days, do not drink alcohol may take with food to minimize abdominal discomfort, # 14 tablet, 0 Refills, Acute 04/28/21 17:06:00 EST, 04/21/21 17:06:00 EST, Tablet, [facility]/pharmacy #[id number], Partial fill upo... Start Date: 04/21/21 Stop Date: 04/28/21 Status: OrderedNaprosyn 500 mg oral tablet 1 [...] Refills, Maintenance, 04/21/21 17:05:00 EST, EC Tablet, [facility]/pharmacy #[id number], Partial fill upon [...]
--- OUTSIDE RECORDS SUMMARY | 2022-03-29 08:06 | XMS_ITS | Continuity of Care Document ---
:1975 Author Organization [facility] Address [address] [place] [address]- Care Team Providers Name Role Phone Martin DOSS, Topher Moore Primary Care Physician [phone] Encounter [id number] Date(s): 02/23/21 - 03/25/21 [facility] [address] [place], [place] [address] Attending Physician: Romina Oconnor Admitting [...] 06/14/20 15:45:00 EST, Route to Pharmacy Electronically, [facility]/pharmacy #[id number], Partial fill upon patient request ifthe prescription [...]
[2022-03-29 08:08] LABS: Influenza A PCR POSITIVE (Negative); Influenza B PCR NEGATIVE (Negative); Resp Syncy Virus RNA Qual PCR NEGATIVE (Negative); SARS COV2 PCR INHOUSE NEGATIVE (Negative)
--- NOTE | 2022-03-29 09:27 | ED.GENADULT ---
HPI - General Adult General Chief complaint: Upper Respiratory Symptoms Stated complaint: sob headache sore throat cough Time Seen by Provider: 03/29/22 09:17 History of Present Illness HPI narrative: Patient complains of body aches cough headache fatigue for 1 day no chest pain no shortness of breath no vomiting Related Data Home Medications Medication Instructions Recorded Confirmed cetirizine 10 mg tablet 10 mg PO DAILY PRN 10/08/20 ferrous sulfate 325 mg (65 mg 325 mg PO BID 10/08/20 iron) tablet gabapentin 300 mg capsule 300 mg PO TID 10/08/20 hydrochlorothiazide 25 mg tablet 25 mg PO DAILY 10/08/20 naproxen 500 mg tablet 500 mg PO BID 10/08/20 tizanidine 2 mg capsule 2 mg PO TID PRN 10/08/20 Previous Rx's Medication Instructions Recorded ibuprofen 600 mg tablet 600 mg PO Q6H PRN fever or pain 03/29/22 #20 tabs oseltamivir 75 mg capsule (Tamiflu) 75 mg PO BID 5 days #10 caps 03/29/22 Allergies Allergy/AdvReac Type Severity Reaction Status Date / Time Seasonal Allergies Allergy Mild Dry Eye Verified 10/08/20 13:19 Review of Systems Review of Systems: Positive for cough body aches headache Negatives are no dizziness no confusion no fainting no feeling faint no difficulty breathing or swallowing no sore throat no neck pain no stiff neck no chest pain no shortness breath no abdominal pain no nausea vomiting or diarrhea no skin rash no dysuria PMFSH Past Medical History Source: nursing notes reviewed Family History Family History (Updated 10/08/20 @ 13:22 by Erika Kwon) Mother No problems noted. Father No problems noted. Sister High cholesterol Sister Hypertension Brother No problems noted. Daughter No problems noted. Daughter No problems noted. Social History Social History (Updated 10/08/20 @ 13:23 by Erika Kwon) Alcohol intake: current Alcohol intake frequency: a few times a month Alcohol type: beer, wine and hard liquor Patient Tobacco Use Status: Current someday Tobacco user Cigarettes Per Day: 1 Advance Directives: No Advance Directives Information Provided: No Physical Exam ED Vital Signs: Vital Signs - 24 hr 03/29/22 07:18 Temperature 98.1 F Pulse Rate 61 Respiratory Rate 18 Blood Pressure 128/74 Pulse Oximetry 99 Oxygen Delivery Method Room Air BMI result Body Mass Index 40.9 General appearance comfortable no distress Eyes anicteric no pallor The pharynx mucous membranes are moist no redness swelling or exudate Neck is supple Chest clear to auscultation bilateral full symmetric equal breath sounds Heart no murmur Abdomen soft nontender Extremities full range of motion x4, no edema no calf tenderness or swelling Skin no rashes Neuro no focal deficits Course Course Course Narrative: Nursing note had stated sore throat and short of breath but if the time I saw the patient there was no shortness of breath no sore throat she is swallowing easily tolerating p.o. Patient tested positive for flu in as she is within the 24 when no she is given a script for Tamiflu and well-appearing patient was discharged from the er Medical Decision Making Lab Data MDM Lab Attestation statement: I reviewed the patient's lab results. Labs: Lab Results 03/29/22 Range/Units 07:22 Influenza Type A (PCR) POSITIVE A (Negative) Influenza Type B (PCR) NEGATIVE (Negative) RSV RNA Qual (PCR) NEGATIVE (Negative) SARS-CoV-2 RNA (RT-PCR) NEGATIVE (Negative) Discharge Plan Discharge Clinical Impression: Influenza Patient Disposition: Home, Self-Care Additional Instructions: You tested positive for flu Drink plenty of fluids Tylenol or Motrin as needed for body aches or fever It is contagious so I gave you a note for 3 days off work Return any time for difficulty breathing dehydration any worse condition or any concerns Prescriptions: New oseltamivir [Tamiflu] 75 mg capsule 75 mg PO BID 5 Days Qty: 10 0RF ibuprofen 600 mg tablet 600 mg PO Q6H PRN (Reason: fever or pain) Qty: 20 0RF Stand Alone Forms: Work/School Release Interventions: ED Discharge Assessment Last Done: 03/29/22 09:34 Discharge Date/Time: 03/29/22 09:40
== END 2022-03-29 09:40 | disposition home or self-care (01) ==
PROVIDERS: Emergency Provider Emergency Medicine Emergency Medical Services
DX: J11.1 Influenza due to unidentified influenza virus with other respiratory manifestations (principal); R06.02 Shortness of breath; Z20.822 Contact with and (suspected) exposure to COVID-19
CPT/HCPCS: 0241U; 99282; 99283

== ENCOUNTER → 2022-05-05 10:38 | Outpatient (BNVA) | payer OTHER, SELFPAY | PROVIDERS: Visit Provider Physician Assistant | DX: E66.01 Morbid (severe) obesity due to excess calories (principal); G47.33 Obstructive sleep apnea (adult) (pediatric); F32.A Depression, unspecified; E78.5 Hyperlipidemia, unspecified; K21.9 Gastro-esophageal reflux disease without esophagitis; Z68.41 Body mass index [BMI] 40.0-44.9, adult | CPT/HCPCS: 99202 ==